=== PATIENT | female | born 1940 | race African-American/Black ===

== ENCOUNTER 2018-04-02 21:27 | Emergency (ER) | payer OTHER, BC ==
[2018-04-02 21:36] VITALS: BP 162/126; PULSE 114; TEMP 98.2; BMI 40.6
--- NOTE | 2018-04-02 21:36 | PDOC ---
Rapid Medical Evaluation Time Seen by Provider: 04/02/18 21:31 Medical Evaluation: 04/02/18 21:31 I have performed a brief in-person evaluation of this patient. The patient presents with a chief complaint of: bleeding from procedure site Pertinent physical exam findings: bleeding controlled on arrival. clothing saturated with blood. I have ordered the following: CBC, coags, HR-116 The patient will proceed to the ED for further evaluation. Discharge Disposition - Diagnosis Bleeding - Referrals Referrals: Lorenzo Bowles [Primary Care Provider] - - Patient Instructions - Post Discharge Activity
--- NOTE | 2018-04-02 22:19 | PDOC ---
History of Present Illness - General Chief Complaint: Laceration Stated Complaint: BLEEDING Time Seen by Provider: 04/02/18 21:31 History Source: Patient Exam Limitations: No Limitations - History of Present Illness Initial Comments: 04/02/18 22:21 CHIEF COMPLAINT: post-procedure bleeding HISTORY OF PRESENT ILLNESS: This is 77-year-old woman past medical history of hypertension, CHF, spinal stenosis presents with bleeding from epidural steroid injection site. Patient states at approximately 5:00 this evening she receives epidural steroid injections to help with pain related to her spinal stenosis and sciatica. Patient got home she noticed she had some bleeding at the sites which had saturated her clothing. Patient placed paper towels to the bleeding site and inside her underwear prior to arrival. Bleeding is currently controlled. No recent travel or sick contacts. ALLERGIES: No known drug allergies REVIEW OF SYSTEMS General/Constitutional: Denies fever or chills. Denies weakness, weight change. HEENT: Denies change in vision. Denies ear pain or discharge. Denies sore throat. Cardiovascular: Denies chest pain or shortness of breath. Respiratory: Denies cough, wheezing, or hemoptysis. Gastrointestinal: Denies nausea, vomiting, diarrhea or constipation. Denies rectal bleeding. Genitourinary: Denies dysuria, frequency, or change in urination. Musculoskeletal: Denies joint or muscle swelling or pain. Denies neck or back pain. Skin and breasts: Denies rash or easy bruising. Neurologic: Denies headache, vertigo, loss of consciousness, or loss of sensation. Psychiatric: Denies depression or anxiety. Endocrine: Denies increased thirst. Denies abnormal weight change. Hematologic/Lymphatic: Denies easy bleeding, or history of blood clots. Bleeding from procedure site. Allergic/Immunologic: Denies hives or skin allergy. Denies latex allergy. PHYSICAL EXAM General Appearance: Well-appearing, appropriately dressed. No apparent distress , no intoxication. HEENT: EOMI, PERRLA, normal ENT inspection, normal voice, TMs normal, pharynx normal. No conjunctival pallor. No photophobia, scleral icterus. Neck: Supple. Trachea midline. No tenderness, rigidity, carotid bruit, stridor , lymphadenopathy, or thyromegaly. Respiratory/Chest: Lungs CTAB. No shortness of breath, chest tenderness, respiratory distress, accessory muscle use. No crackles, rales, rhonchi, stridor , wheezing, dullness Cardiovascular: RRR. S1, S2. No JVD, murmur, bradycardia, tachycardia. Bleeding currently controlled from epidural injection sites. Clots present on paper towels over injection sites. Vascular Pulses: Dorsalis-Pedis (R): 2+, Dorsalis-Pedis (L): 2+ Gastrointestinal/Abdominal: Normal bowel sounds. Abdomen soft, non-distended. No tenderness or rebound tenderness. No organomegaly, pulsatile mass, guarding , hernia, hepatomegaly, splenomegaly. Lymphatic: No adenopathy, tenderness. Musculoskeletal/Extremities: Normal inspection. FROM of all extremities, normal capillary refill. Pelvis Stable. No CVA tenderness. No tenderness to extremities, pedal edema, swelling, erythema or deformity. Integumentary: Appropriate color, dry, warm. No cyanosis, erythema, jaundice or rash. 2 punctate injection sites present to b/l lower back at level of L2-L3. Neurologic: auger operator II-XII intact. Fully oriented, alert. Appropriate mood/affect. Motor strength 5/5. No appreciable EOM palsy, facial droop or sensory deficit. Past History - Past Medical History Allergies/Adverse Reactions: Allergies Allergy/AdvReac Type Severity Reaction Status Date / Time Penicillins Allergy Verified 04/02/18 21:36 COPD: No HTN: Yes - Surgical History Abdominal Surgery: Yes (HYSTERECTOMY) Appendectomy: Yes - Suicide/Smoking/Psychosocial Hx Smoking History: Never smoked *Physical Exam - Vital Signs Last Vital Signs Temp Pulse Resp BP Pulse Ox 98.2 F 114 H 18 162/126 97 04/02/18 21:31 04/02/18 21:31 04/02/18 21:31 04/02/18 21:31 04/02/18 21:31 ED Treatment Course - LABORATORY CBC & Chemistry Diagram: 04/03/18 01:34 Medical Decision Making - Medical Decision Making 04/02/18 22:23 A/P: 77-year-old woman past medical history of hypertension, CHF, spinal stenosis with bleeding from procedure site 2 punctate injection sites noted to lower back bilaterally at the level of L2-L3 Bleeding controlled present Patient's clothing saturated with blood upon arrival CBC, coags Given bleeding is recently controlled I will redraw labs in 4 hours to evaluate for anemia at that time. 04/03/18 02:01 Initial laboratory testing reveals an H&H of 14.1/42.1. Patient with left shift but received steroid injections today. This is most likely a steroid effect. PT/ INR elevated at 19.9 and INR of 1.76. Patient has not taken any medications. Bleeding is currently controlled at this time. Repeat H&H 14.6/43.9. as bleeding is controlled and H&H is stable will discharge the patient home to follow-up with her orthopedist who performed the procedure. *DC/Admit/Observation/Transfer Diagnosis at time of Disposition: Bleeding - Discharge Dispostion Disposition: HOME Condition at time of disposition: Fair Decision to Admit order: No - Referrals Referrals: Lorenzo Bowles [Primary Care Provider] - - Patient Instructions Additional Instructions: Return to emergency department should he begin to experience more bleeding, dizziness, chest pain, shortness of breath, fatigue or any other concerns. Any evaluation receiving the emergency department is incomplete. Please follow- up with the doctor who performed her procedure for reevaluation. Thank you very much for choosing us to provide your emergent health care needs. - Post Discharge Activity
[2018-04-02 22:55] LABS: BASO % 0.4 % (0-2.0); EOS % 0.2 % (0-4.5); HEMATOCRIT 42.1 % (32.4-45.2); HEMOGLOBIN 14.1 GM/dL (10.7-15.3); LYMPH % 7.1 % (8-40); MCH 29.6 pg (25.7-33.7); MCHC 33.4 g/dl (32.0-36.0); MEAN CELL VOLUME 88.5 fl (80-96); MEAN PLT VOLUME 9.7 fl (7.5-11.1); MONO % 0.8 % (3.8-10.2); NEUT % 91.5 % (42.8-82.8); PLATELET COUNT 301 K/MM3 (134-434); RBC 4.76 M/mm3 (3.60-5.2); RDW 13.7 % (11.6-15.6); WHITE BLOOD COUNT 8.2 K/mm3 (4.0-10.0)
[2018-04-02 23:31] LABS: INR 1.76 (0.82-1.09)
[2018-04-02 23:33] LABS: PLATELET ESTIMATE ADEQUATE
--- NOTE | 2018-04-02 23:35 | PDOC ---
*Physical Exam - Vital Signs Last Vital Signs Temp Pulse Resp BP Pulse Ox 98.2 F 114 H 18 162/126 97 04/02/18 21:31 04/02/18 21:31 04/02/18 21:31 04/02/18 21:31 04/02/18 21:31 ED Treatment Course - LABORATORY CBC & Chemistry Diagram: 04/02/18 22:30 - ADDITIONAL ORDERS Additional order review: Laboratory Results 04/02/18 22:30 INR 1.76 H 04/02/18 22:30 RBC 4.76 MCV 88.5 MCHC 33.4 RDW 13.7 MPV 9.7 Neutrophils % 91.5 H Lymphocytes % 7.1 L Monocytes % 0.8 L Eosinophils % 0.2 Basophils % 0.4 Medical Decision Making - Medical Decision Making 04/02/18 23:35 agree with care from OMAR Langston *DC/Admit/Observation/Transfer Diagnosis at time of Disposition: Bleeding - Referrals Referrals: Lorenzo Bowles [Primary Care Provider] - - Patient Instructions - Post Discharge Activity
[2018-04-02 23:41] LABS: PROTHROMBIN TIME (PATIENT) 19.9 SEC (9.7-13.0)
[2018-04-03 01:53] LABS: BASO % 0.3 % (0-2.0); HEMATOCRIT 43.9 % (32.4-45.2); HEMOGLOBIN 14.6 GM/dL (10.7-15.3); LYMPH % 9.4 % (8-40); MCH 29.5 pg (25.7-33.7); MCHC 33.2 g/dl (32.0-36.0); MEAN CELL VOLUME 88.9 fl (80-96); MEAN PLT VOLUME 9.8 fl (7.5-11.1); MONO % 1.6 % (3.8-10.2); NEUT % 88.7 % (42.8-82.8); PLATELET COUNT 342 K/MM3 (134-434); RBC 4.94 M/mm3 (3.60-5.2); WHITE BLOOD COUNT 7.5 K/mm3 (4.0-10.0)
== END 2018-04-03 02:06 | disposition home or self-care (01) ==
LOC: JER 21:27
DX: T80.89XA Other complications following infusion, transfusion and therapeutic injection, initial encounter (principal); I10 Essential (primary) hypertension; I50.9 Heart failure, unspecified
CPT/HCPCS: 36415; 85025; 85610; 86850; 86900; 86901; 99282-25